=== PATIENT | female | born 1985 | race American Indian/Alaskan Native ===

== ENCOUNTER 2018-08-12 16:41 | Emergency (ER) | payer MEDICAID ==
[2018-08-12 16:58] VITALS: RESP 18; TEMP 98.2; O2SAT 96
[2018-08-12 16:59] VITALS: BMI 29.8
[2018-08-12] MEDS ORDERED: Sodium Chloride 0.9% 1,000 ML IV STA (17:00)
--- NOTE | 2018-08-12 17:12 | ED PDOC ---
Arrival/HPI - General Chief Complaint: Chest Pain Time Seen by Provider: 08/12/18 16:48 Historian: Patient - History of Present Illness Narrative History of Present Illness (Text): 08/14/18 00:02 33 y/o female with no significant PMH presents to the ED c/o chest pain x 1 week. Associated intermittent dizziness, upper respiratory symptoms, and productive cough. Chest pain is sharp, left sided, and worse with coughing/breathing. Describes dizziness as room spinning that occurs a few times per day and lasts approx 5 minutes, with associated nausea. Worse with turning her head too quickly. Has been taking Nyquil for symptoms without relief. Pt currently menstruating. Denies fever, chills, headache, vision changes, neck pain/stiffness, back pain, abdominal pain, nausea, vomiting, numbness, weakness, paresthesias, or any other associated symptoms. Past Medical History - Cardiac Hx Cardiac Disorders: Yes Hx Heart Murmur: Yes - Pulmonary Hx Respiratory Disorders: No - Neurological Hx Neurological Disorder: No - HEENT Hx HEENT Disorder: No - Renal Hx Renal Disorder: No - Endocrine/Metabolic Hx Endocrine Disorders: No - Hematological/Oncological Hx Blood Disorders: Yes Hx Anemia: Yes - Integumentary Hx Dermatological Disorder: No - Musculoskeletal/Rheumatological Hx Musculoskeletal Disorders: No - Gastrointestinal Hx Gastrointestinal Disorders: No - Genitourinary/Gynecological Hx Genitourinary Disorders: No - Psychiatric Hx Psychophysiologic Disorder: No Hx Substance Use: No - Surgical History Other/Comment: tumor removal when a kid. - Anesthesia Hx Anesthesia: Yes Hx Anesthesia Reactions: No Hx Malignant Hyperthermia: No Family/Social History - Physician Review Nursing Documentation Reviewed: Yes Family/Social History: No Known Family HX Smoking Status: Current Some Days Smoker Hx Alcohol Use: Yes Frequency of alcohol use: Socially Hx Substance Use: No Allergies/Home Meds Allergies/Adverse Reactions: Allergies Penicillins Allergy (Verified 08/12/18 16:59) ANGIOEDEMA Review of Systems - Physician Review All systems were reviewed & negative as marked: Yes - Review of Systems Constitutional: Fatigue, Fevers Eyes: Normal. absent: Vision Changes ENT: Rhinorrhea, Sinus Congestion. absent: Sore Throat Respiratory: Cough, Sputum. absent: SOB Cardiovascular: Chest Pain. absent: Palpitations, Calf Pain, Syncope Gastrointestinal: Normal. absent: Abdominal Pain, Stool Changes, Nausea, Vomiting, Appetite Changes Genitourinary Female: Normal. absent: Dysuria, Frequency Musculoskeletal: Normal. absent: Arthralgias, Back Pain, Neck Pain Skin: Normal. absent: Rash Neurological: Dizziness. absent: Headache, Focal Weakness, Gait Changes, Disequilibrium Endocrine: Normal Hemo/Lymphatic: Normal Psychiatric: Normal Physical Exam Vital Signs Reviewed: Yes Vital Signs Temp Pulse Pulse Resp BP BP Pulse Ox 08/12/18 17:03 98 H 120/70 08/12/18 16:58 98.2 F 105 H 18 120/70 96 Temperature: Afebrile Blood Pressure: Normal Pulse: Tachycardic Respiratory Rate: Normal Appearance: Positive for: Well-Appearing, Non-Toxic, Comfortable Pain Distress: None Mental Status: Positive for: Alert and Oriented X 3 - Systems Exam Head: Present: Atraumatic, Normocephalic Pupils: Present: PERRL Extroacular Muscles: Present: EOMI Conjunctiva: Present: Normal Ears: Present: Normal, NORMAL TM Mouth: Present: Moist Mucous Membranes Pharnyx: Present: Normal. No: ERYTHEMA, EXUDATE, TONSILS ENLARGED Nose (External): Present: Atraumatic Nose (Internal): Present: Normal Inspection Neck: Present: Normal Range of Motion. No: Meningeal Signs Respiratory/Chest: Present: Clear to Auscultation, Good Air Exchange. No: Respiratory Distress, Accessory Muscle Use Cardiovascular: Present: Regular Rate and Rhythm, Normal S1, S2, Peripheal Pulses Present. No: Murmurs Abdomen: Present: Normal Bowel Sounds. No: Tenderness, Distention, Peritoneal Signs, Rebound, Guarding Back: Present: Normal Inspection. No: CVA Tenderness Upper Extremity: Present: Normal Inspection, Normal ROM, NORMAL PULSES, Neurovascularly Intact, Capillary Refill < 2s. No: Cyanosis, Edema, Temperature Abnormalties Lower Extremity: Present: Normal Inspection, NORMAL PULSES, Normal ROM, Neurovascularly Intact, Capillary Refill < 2 s. No: Edema, CALF TENDERNESS, Temperature Abnormalties Neurological: Present: GCS=15, CN II-XII Intact, Speech Normal, Motor Func Grossly Intact, Normal Sensory Function, Gait Normal Skin: Present: Warm, Dry, Normal Color. No: Rashes Lymphatic: No: Cervical Adenopathy Psychiatric: Present: Alert, Oriented x 3, Normal Insight, Normal Concentration, Normal Affect, Normal Mood Medical Decision Making ED Course and Treatment: 08/12/18 17:10 Initial Plan: * CBC, CMP * Dimer * Coags * UA, culture * Cardiac Iso * CXR * EKG * IVF * Meclizine * Orthostatics Labwork reviewed, mildly elevated CK, otherwise unremarkable CT head negative for acute disease CXR shows no active disease EKG nonspecific, no STEMI Negative orthostatics 20:45 Patient continues to feel intermittently lightheaded with chest pain. Persistently tachycardic. Will seek inpatient observation. 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 Will give Z-jose and tessalon perles with supportive care and advise PMD followup. This patient is choosing to leave against medical advice. I have personally explained to the patient that choosing to do so may result in permanent bodily harm or . I have discussed at great length that without further evaluation and monitoring there may be unforeseen circumstances and/or deterioration causing permanent bodily harm or as a result of their choice. The patient is alert, oriented, and shows the mental capacity to make clear decisions regarding the patients health care at this time. The patient continues to wish to leave against medical advice. In light of the patients decision to leave AMA, follow-up has been arranged and the patient is aware of the importance of following up as instructed. The patient has been advised that they should return to the ED immediately if they change their mind at any time, or if their condition begins to change or worsen in any way. - Lab Interpretations Lab Results: 08/12/18 17:40 08/12/18 17:40 Lab Results 08/12/18 18:35: PT 12.2, INR 1.10, APTT 28.4, D-Dimer, Quantitative < 200 08/12/18 18:20: Urine Opiates Screen Negative, Urine Methadone Screen Negative, Ur Barbiturates Screen Negative, Ur Phencyclidine Scrn Negative, Ur Amphetamines Screen Negative, U Benzodiazepines Scrn Negative, U Oth Cocaine Metabols Negative, U Cannabinoids Screen Negative 08/12/18 18:20: Urine Color Yellow, Urine Appearance Slight-cloudy, Urine pH 5.5, Ur Specific [place] >= 1.030, Urine Protein 100 H, Urine Glucose (UA) Negative, Urine Ketones Negative, Urine Blood Large H, Urine Nitrate Negative, Urine Bilirubin Negative, Urine Urobilinogen 0.2, Ur Leukocyte Esterase Negative, Urine RBC 25 - 30 H, Urine WBC 0 - 2, Ur Epithelial Cells 6 - 8 H, Urine HCG, Qual Negative 08/12/18 17:40: Influenza Typ A,B (EIA) Negative for flu a/b 08/12/18 17:40: Sodium 139, Potassium 4.2, Chloride 108 H, Carbon Dioxide 20 L, Anion Gap 15, BUN 14, Creatinine 0.8, Est GFR ( Amer) > 60, Est GFR (Non- Af Amer) > 60, Random Glucose 110, Calcium 9.3, Magnesium 1.8, Total Bilirubin 0.3, AST 26, ALT 16, Alkaline Phosphatase 84, Lactate Dehydrogenase 545, Total Creatine Kinase 402 H, CK-MB (CK-2) 1.0, CK-MB (CK-2) % Cancelled, Troponin I < 0.01, Total Protein 7.9, Albumin 4.4, Globulin 3.4, Albumin/Globulin Ratio 1.3 08/12/18 17:40: WBC 5.6, RBC 4.18, Hgb 12.9, Hct 38.2, MCV 91.4, MCH 30.9, MCHC 33.8, RDW 13.2, Plt Count 248, MPV 10.3, Neut % (Auto) 71.5 H, Lymph % (Auto) 16.8 L, Hubbard % (Auto) 8.6 H, Eos % (Auto) 2.7, Baso % (Auto) 0.4, Lymph # (Auto) 0.9 L, Hubbard # (Auto) 0.5, Eos # (Auto) 0.2, Baso # (Auto) 0.02, Absolute Neuts (auto) 3.99 I have reviewed the lab results: Yes - RAD Interpretation Narrative RAD Interpretations (Text): 08/12/18 20:59 CT Head without Intravenous Contrast. CLINICAL HISTORY: HEADACHE - DIZZINESS TECHNIQUE: Axial computed tomography images of the head/brain without intravenous contrast. 898.33 mGy-cm COMPARISON: None provided. FINDINGS: BRAIN No acute intraparenchymal hemorrhage. No mass lesion. No CT evidence for acute territorial infarct. No midline shift or extra-axial collections. VENTRICLES: No hydrocephalus. ORBITS: The orbits are unremarkable. SINUSES AND MASTOIDS: The paranasal sinuses and mastoid air cells are clear. BONES: No fracture. SOFT TISSUES: Unremarkable. IMPRESSION: No acute intracranial abnormality. CXR: IMPRESSION: No active disease Radiology Orders: 08/12/18 16:59 CHEST TWO VIEWS (PA/LAT) [RAD] Stat Web Assistant: Radiologist - EKG Interpretation EKG Interpretation (Text): Rate 90; NSR; Normal Intervals; No STEMI, nonspecific ST/T wave changes Interpreted by ED Physician: Yes Type: 12 lead EKG - Medication Orders Current Medication Orders: Sodium Chloride (Sodium Chloride 0.9%) 1,000 mls @ 999 mls/hr IV .Q1H1M STA Stop: 08/12/18 18:00 Disposition/Present on Arrival - Present on Arrival Any Indicators Present on Arrival: No History of DVT/PE: No History of Uncontrolled Diabetes: No Urinary Catheter: No History of Decub. Ulcer: No History Surgical Site Infection Following: None - Disposition Have Diagnosis and Disposition been Completed?: No Diagnosis: Chest pain, Lower respiratory infection, Vertigo, Left against medical advice Disposition: AGAINST MEDICAL ADVICE Disposition Time: 21:00 Condition: GUARDED Discharge Instructions (ExitCare): Acute Bronchitis, Adult (DC), Vertigo (a Type of Dizziness) (DC), Leaving Against Medical Advice, Chest Pain (ED) Additional Instructions: Z-jose as instructed Pam terrell every 8 hours as needed Followup with ENT within 2 days Followup with primary within 2 days Return to ER with any new/worsening symptoms or if you wish to be re-evaluated Prescriptions: Azithromycin [Z-Jose] 250 mg PO DAILY #6 tab Benzonatate [Tessalon Perle] 100 mg PO Q8H PRN #15 capsule PRN Reason: Cough Referrals: [facility] [place] [Outside] - Follow up with primary Juan Pablo Baron DO [Staff Provider] - Follow up with primary Desi Pratt MD [Medical Doctor] - Follow up with primary Forms: [employer] (Kosovan)
[2018-08-12 17:48] LABS: BASO # 0.02 K/mm3 (0.0-2.0); BASO % 0.4 % (0.0-3.0); EOS # 0.2 (0.0-0.7); EOS % 2.7 % (1.5-5.0); HEMOGLOBIN 12.9 g/dL (12.0-16.0); LYMPH # 0.9 (1.2-3.4); LYMPH % 16.8 % (22.0-35.0); MEAN CELL VOLUME 91.4 fl (80.0-105.0); MEAN CORPUSCULAR HEMOGLOBIN 30.9 pg (25.0-35.0); MEAN CORPUSCULAR HGB CONC 33.8 g/dl (31.0-37.0); MEAN PLATELET VOLUME 10.3 fl (7.0-11.0); MONO # 0.5 (0.1-0.6); MONO % 8.6 % (1.0-6.0); RBC 4.18 10^6/uL (3.5-6.1); RED CELL DISTRIBUTION WIDTH 13.2 % (11.5-14.5); WHITE BLOOD COUNT 5.6 10^3/uL (4.5-11.0)
[2018-08-12 17:58] LABS: ALB/GLOB RATIO 1.3 (1.1-1.8); ALBUMIN 4.4 g/dL (3.0-4.8); ALT/SGPT 16 U/L (7-56); AST/SGOT 26 U/L (14-36); BLOOD UREA NITROGEN 14 mg/dL (7-21); CALCIUM 9.3 mg/dL (8.4-10.5); GFR NON-AFRICAN AMERICAN > 60
[2018-08-12 18:09] LABS: TROPONIN I < 0.01 ng/mL
[2018-08-12 18:30] LABS: PH,URINE 5.5 (4.7-8.0); URINE APPEARANCE SLIGHT-CLOUDY (CLEAR); URINE BILIRUBIN NEGATIVE (NEGATIVE); URINE BLOOD LARGE (NEGATIVE); URINE COLOR YELLOW (YELLOW); URINE GLUCOSE (UA) NEGATIVE (NEGATIVE); URINE LEUKOCYTE ESTERASE NEGATIVE Leu/uL (NEGATIVE); URINE PROTEIN 100 mg/dL (<30 mg/dL); URINE UROBILINOGEN 0.2 E.U./dL (<1 E.U./dL)
[2018-08-12 18:33] LABS: HCG,QUALITATIVE URINE NEGATIVE (NEGATIVE)
[2018-08-12 18:36] LABS: URINE RBC 25 - 30 /hpf (0-2); URINE WBC 0 - 2 /hpf (0-6)
[2018-08-12 18:43] LABS: PHENCYCLIDINE, UR NEGATIVE (NEGATIVE)
[2018-08-12 18:44] LABS: BARBITURATES, UR NEGATIVE (NEGATIVE); BENZODIAZEPINES, UR NEGATIVE (NEGATIVE); OPIATES, UR NEGATIVE (NEGATIVE)
[2018-08-12 18:48] LABS: PARTIAL THROMBOPLASTIN TIME 28.4 Seconds (26.9-38.3); PROTHROMBIN TIME 12.2 SECONDS (9.4-12.5)
[2018-08-12 18:49] LABS: D DIMER < 200 ng/mlDDU (0-243)
[2018-08-12 20:44] VITALS: BP 116/64; PULSE 102
--- NOTE | 2018-08-12 22:15 | CARD ---
APPROVED REPORT Date of service: 08/12/2018 EKG Measurement Heart [id number] <Conclusion> Normal sinus rhythm NDSTT abnormalities Abnormal ECG
--- NOTE | 2018-08-13 08:13 | CT ---
Date of service: 08/12/2018 PROCEDURE: CT HEAD WITHOUT CONTRAST. HISTORY: headache, dizziness COMPARISON: None available. TECHNIQUE: Axial computed tomography images were obtained through the head/brain without intravenous contrast. Radiation dose: Total exam DLP = 898.33 mGy-cm. This CT exam was performed using one or more of the following dose reduction techniques: Automated exposure control, adjustment of the mA and/or kV according to patient size, and/or use of iterative reconstruction technique. FINDINGS: HEMORRHAGE: No intracranial hemorrhage. BRAIN: No mass effect or edema. No atrophy or chronic microvascular ischemic changes. VENTRICLES: Unremarkable. No hydrocephalus. CALVARIUM: Unremarkable. PARANASAL SINUSES: Unremarkable as visualized. No significant inflammatory changes. MASTOID AIR CELLS: Unremarkable as visualized. No inflammatory changes. OTHER FINDINGS: The report concurs with the preliminary [facility] report IMPRESSION: No acute intracranial abnormality
--- NOTE | 2018-08-13 08:45 | RAD ---
Date of service: 08/12/2018 HISTORY: SOB COMPARISON: No prior. TECHNIQUE: Chest PA and lateral FINDINGS: LUNGS: No active pulmonary disease. PLEURA: No significant pleural effusion identified. No pneumothorax apparent. CARDIOVASCULAR: No aortic atherosclerotic calcification present. Normal cardiac size. No pulmonary vascular congestion. OSSEOUS STRUCTURES: No significant abnormalities. VISUALIZED UPPER ABDOMEN: Normal. OTHER FINDINGS: None. IMPRESSION: No active disease.
== END 2018-08-12 21:12 | disposition left against medical advice (07) ==
LOC: ED 16:41
DX: R07.9 Chest pain, unspecified (principal); R42 Dizziness and giddiness; J22 Unspecified acute lower respiratory infection
CPT/HCPCS: 70450; 71046; 80053; 80324; 80345; 80346; 80349; 80353; 80358; 80361; 81001; 81025; 82550; 82553; 83615; 83735; 83992; 84484; 84703; 85025; 85378; 85610; 85730; 87086; 87804; 93005; 99285; J7030